=== PATIENT | male | born 1995 | race Caucasian/White ===

== ENCOUNTER 2019-12-08 14:32 | Inpatient (IN) | payer OTHER, SELFPAY ==
[2019-12-08] VITALS (11 sets, daily range): BP systolic 114–127; BP diastolic 62–75; PULSE 66–80; RESP 16–21; TEMP 36.4–36.9; O2SAT 97–100; BMI 25.0
--- NOTE | ~2019-12-08 | XR_ITS ---
EXAMINATION: XR chest 2V DATE: 12/10/2019 11:59 INDICATION: Right pneumothorax status post chest tube removal TECHNIQUE: PA and lateral views of the chest are obtained. COMPARISON: 0559 hours FINDINGS: The lungs are free of acute opacities. The right-sided chest tube has been removed. No pneu mothorax is identified. There is no pleural effusion. The cardiomediastinal silhouette is normal. Robbie gical changes are noted in the distal right clavicle. IMPRESSION: 1. Right-sided chest tube removal without pneumothorax identified. Reviewed, dictated and finalized at location A.
--- NOTE | ~2019-12-08 | XR_ITS ---
EXAMINATION: XR chest 1V portable INDICATION: Right pneumothorax TECHNIQUE: Portable AP chest at 0559 hours COMPARISON: 12/09/2019 FINDINGS: A right-sided chest tube has been partially withdrawn but remains in position. No pneumotho rax is identified. The lungs are free of acute opacities. The cardiomediastinal silhouette is normal. There is no pleural effusion. IMPRESSION: 1. Right-sided chest tube in position, no pneumothorax. Reviewed, dictated and finalized at location A.
--- NOTE | ~2019-12-08 | XR_ITS ---
XR chest-chest tube insert/pos 12/08/2019 16:22 Indication: Right pneumothorax post chest tube placement Procedure: AP portable chest Comparison: 12/08/2019 Findings: Significantly decreased size of right pneumothorax post chest tube placement. There is atel ectasis right midlung. Normal mediastinal position. Left lung clear. No pleural effusion. Heart size normal. Impression: 1: Significantly decreased size of right pneumothorax post chest tube placement. Reviewed, dictated and finalized at location A. Impression: 1: Significantly decreased size of right pneumothorax post chest tube placement .
--- NOTE | ~2019-12-08 | XR_ITS ---
EXAMINATION: XR chest 1V portable 12/08/2019 15:11 INDICATION: Right sided chest pain pressure. PROCEDURE: AP portable chest COMPARISON: No prior studies for comparison. FINDINGS: The lungs are clear. The cardiomediastinal silhouette is within normal limits. There are no pleural effusions. There is a moderate-large right pneumothorax with subtle mediastinal shift to t he left. IMPRESSION: 1: Moderate-large right pneumothorax with subtle leftward mediastinal shift. Dr. Farah discussed with Dr. Armando Dailey MD at 12/08/2019 15:14 CDT. Reviewed, dictated and finalized at location A.
--- NOTE | ~2019-12-08 | XR_ITS ---
EXAMINATION: XR chest 2V DATE: 12/09/2019 08:39 INDICATION: Pneumothorax TECHNIQUE: AP and lateral views of the chest are obtained. COMPARISON: 12/08/2019 FINDINGS: The lungs are free of acute opacities. The right-sided chest tube is positioned anteriorly. No persistent pneumothorax is identified. There is no pleural effusion. The cardiomediastinal silhou ette is normal. The visualized bones and soft tissues are unremarkable. IMPRESSION: 1. Right chest tube in position. No pneumothorax identified. Reviewed, dictated and finalized at location A.
--- NOTE | 2019-12-08 14:44 | ECG_ITS ---
Measurements Intervals [place] Rate: 68 P: -25 IN: 117 QRS: 62 QRSD: 87 T: 21 QT: 350 QTc: 373 Interpretive Statements SINUS RHYTHM WITH SHORT IN INTERVAL BORDERLINE ECG Electronically Signed On 12-08-2019 16:20:44 CDT by Steve Yang D.O.
[2019-12-08 15:16] LABS: Basophils Percent Auto 0.4 % (0.2-1.2); Eosinophils Percent Auto 0.6 % (0-4.4); Hematocrit 41.1 % (42.0-52.0); Hemoglobin 14.1 g/dL (14.0-18.0); Immature Granulocyte Absolute 0.01 K/mm3 (0.00-0.031); Immature Granulocyte Percent A 0.2 % (0-0.5); Lymphocytes Absolute Auto 1.49 K/mm3 (0.9-3.2); Lymphocytes Percent Auto 27.6 % (18.3-44.2); Mean Corpuscular HGB Conc 34.3 g/dl (32-36); Mean Corpuscular Hemoglobin 31.1 pg (26-34); Mean Corpuscular Volume 90.5 fl (80-100); Mean Platelet Volume 10.1 fl (7.4-10.4); Monocytes Absolute Auto 0.5 K/mm3 (0.1-0.6); Monocytes Percent Auto 9.1 % (2.6-8.5); Neutrophils Absolute Auto 3.4 K/mm3 (1.3-6.7); Neutrophils Percent Auto 62.1 % (45.5-73.1); Platelet Count Result 245 k/mm3 (150-375); Red Blood Count 4.54 M/mm3 (4.6-6.20); Red Cell Distribution Width 11.9 % (11.5-14.5); White Blood Count 5.4 K/mm3 (4.5-10.0)
[2019-12-08 15:26] LABS: INR 1.1; Prothrombin Time 13.5 Seconds (11.1-14.7)
--- NOTE | 2019-12-08 15:26 | PC.NURSE ---
CONSENT OBTAINED FOR CHEST TUBE AT THIS TIME.
[2019-12-08 15:27] LABS: Anion Gap 13.3 mmol/L (7-16); Blood Urea Nitrogen 18 mg/dL (9-20); Calcium 9.6 mg/dL (8.4-10.2); Carbon Dioxide 28 mmol/L (22-30); Chloride 102 mmol/L (98-107); Estimated CRCL calculation 118 ml/min; Estimated Glomerular Filt Rate > 60; Glucose 85 mg/dL (75-110); Partial Thromboplastin Time 31.2 SECONDS (22.3-36.8); Potassium 4.3 mmol/L (3.4-5.0); Sodium 139 mmol/L (137-145)
[2019-12-08 15:39] LABS: Troponin I < 0.012 ng/mL (0.000-0.034)
[2019-12-08] MEDS: SODIUM CHLORIDE 0.9% IV 1,000 ML 999 ML IV CONT (15:40)
--- NOTE | 2019-12-08 16:58 | ED.CHESTPAIN ---
HPI - Chest Pain General Chief Complaint: Chest Pain Stated Complaint: chest pressure today Time Seen by Provider: 12/08/19 14:57 Source: patient and family Mode of arrival: ambulatory Limitations: no limitations History of Present Illness HPI narrative: 24-year-old with a history of spontaneous pneumothorax in the past here with complaints of sudden onset of right-sided chest pain associated with some shortness of breath. Patient states that he was mowing his lawn this morning and while he was doing that he felt a sudden pop in his right side of his chest. He thinks he has another pneumothorax his pain is similar to his previous episodes. He denies any fever or chills no history of cough. MD complaint: chest pain Onset (ago): hour(s) (2) Timing of current episode: constant Pain location: right chest Pain radiation: none Quality: aching Relieving factors: nothing Exacerbating factors: nothing Associated symptoms: dyspnea Risk Factors Coronary artery disease risk factors: none Thoracic aortic dissection risk factors: none Related Data Home Medications Medication Instructions Recorded Confirmed No Home Medications 12/08/19 12/08/19 Allergies Allergy/AdvReac Type Severity Reaction Status Date / Time No Known Allergies Allergy Verified 12/08/19 14:56 Review of Systems Review of Systems: All systems reviewed & are unremarkable except as noted in HPI and below Constitutional: Constitutional: Reports as per HPI Eyes: Eyes: Reports no additional eye complaints ENT: Reports system reviewed and no additional complaints, except as documented Cardiovascular: Cardiovascular: Reports as per HPI Respiratory: Respiratory: Reports as per HPI Gastrointestinal: Gastrointestinal: Reports no additional gastrointestinal complaints Musculoskeletal: Musculoskeletal: Reports no additional musculoskeletal complaints Neurologic: Reports system reviewed and no additional complaints, except as documented PMFSH Social History Social History (Updated 12/08/19 @ 17:02 by Armando Dailey MD) Social History: no Substance use: never Living arrangements: with family Additional occupation/education comments: works as maintence Gender identity (if verbalized by the patient): Male Exam Narrative: Exam Narrative: GENERAL: Well-appearing, well-nourished, and in no acute distress., mildly anxious HEAD: Normocephalic, atraumatic. EYES: PERRLA and EOMI. ENT: Nares clear, no rhinorrhea or epistaxis. Mucous membranes moist. NECK: Supple. CHEST: Decreased air entry on the right. HEART: Regular rate and rhythm. No murmur heard. Normal peripheral pulses. ABDOMEN: Soft, nontender, nondistended, normal active bowel sounds. EXTREMITIES: Normal range of motion. No edema. SKIN: Warm, dry, no rash. NEURO: No focal deficits. Alert and oriented x3. PSYCH: Normal mood and affect. Course Course Emergency Course: Inform patient about his lab work, chest x-ray findings. Agreed for chest tube placement. Details look in the procedure note. Vital Signs Vital signs: Vital Signs Temperature 36.9 C 12/08/19 14:54 Pulse Rate 69 12/08/19 14:54 Respiratory Rate 18 12/08/19 14:54 Blood Pressure 126/67 12/08/19 14:54 Pulse Oximetry 98 12/08/19 14:54 Temperature 36.9 C 12/08/19 16:11 Pulse Rate 75 12/08/19 15:59 Respiratory Rate 21 H 12/08/19 15:59 Blood Pressure 114/72 12/08/19 15:59 Pulse Oximetry 98 12/08/19 15:59 Procedures Chest Tube Chest Tube 1: Chest Tube Date: 12/08/19 Chest Tube Time: 16:00 Chest Tube Location: right Tube Type: trochar Size of Tube (cm): 28 Chest Tube Prep: Yes betadine prep and sterile drapes applied Anesthetic: lidocaine 1% and with epi Amount of anesthesia used (mL): 20 Incision Made With: #11 blade Procedure: incision/open Post Procedure: sutured to skin, sterile dressing applied and connected
--- NOTE | 2019-12-08 18:13 | PC.NURSE ---
This patient, Fer Albrecht, was admitted to 3 [facility] Surg Room 320-01. Patient/family oriented to hospital policies and general routines including ID bracelet, bed and alarms, visiting hours, pain management, procedures, bathroom and other care routines, personal items, smoking policy, room service/diet, and visiting hours. Valuables list has been completed. Information on how to activate the Rapid Response Team has been discussed. Patient/Family are encouraged to report perceived risks to care and to ask questions if they do not understand what they are told or what they should do.
[2019-12-08 18:17] LABS: Troponin I < 0.012 ng/mL (0.000-0.034)
--- NOTE | 2019-12-08 19:03 | PC.NURSE ---
PT IS A WEEK END DRINKER [employer]
[2019-12-08] MEDS: SODIUM CHLORIDE 0.9% IV 1,000 ML 50 ML IV CONT (21:10)
[2019-12-08 21:45] LABS: Troponin I < 0.012 ng/mL (0.000-0.034)
[2019-12-09 02:00] VITALS: BP 122/62; PULSE 63; RESP 20; TEMP 36.6; O2SAT 98
[2019-12-09 06:00] VITALS: BP 119/58; PULSE 74; RESP 20; TEMP 36.4; O2SAT 97
--- NOTE | 2019-12-09 09:32 | PM.IMHP ---
H&P: HPI History of Present Illness Date/Time: 12/09/19 08:32 Chief complaint: Pneumothorax right Narrative: Fer Albrecht is a 24 year old male with a history of a spontaneous pneumothorax in March of 2019 that was treated at [facility], who presented to the emergency department with complaints of right-sided chest pain. 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 Denies any shortness of breath or difficulty breathing. He reports the pain was similar to the pain he felt with his previous pneumothorax, therefore he presented to the emergency department for further evaluation. Chest x-ray in the ER showed a moderate-large sized right pneumothorax with subtle leftward mediastinal shift. Labs were unremarkable. He had a series of three negative troponins and EKG showed normal sinus rhythm. A right-sided chest tube was placed by the ER physician and the repeat chest x-ray confirmed placement with improvement of the pneumothorax. Our service was contacted for the right pneumothorax and he was admitted to the hospital. The patient is now being seen on the medical floor this morning. Only complaint is right-sided chest pain where the chest tube is located. No shortness or breath, difficulty breathing, or cough. He reports he was out drinking the night before, but denies any trauma to the chest or falling. Lifetime non-smoker. Review of Systems Constitutional: Constitutional: Reports as per HPI, Denies chills, Denies excessive sweating, Denies fatigue, Denies fever(s), Denies headache(s) and Denies weakness Eyes: Eyes: Denies change in vision and Denies loss of vision ENT: Reports Normal hearing present, Denies dizziness and Denies headache(s) Cardiovascular: Cardiovascular: Reports as per HPI, Reports no additional cardiovascular complaints, Reports chest pain (right-sided), Denies syncope, Denies leg edema, Denies lightheadedness, Denies radiating jaw, neck or arm pain, Denies dyspnea and Denies dyspnea on exertion Respiratory: Respiratory: Reports no additional respiratory complaints, Denies cough, Reports pain on inspiration (with chest tube in place), Denies dyspnea and Denies wheezing Gastrointestinal: Gastrointestinal: Reports as per HPI and Reports abdominal pain Musculoskeletal: Musculoskeletal: Denies deformity, Denies joint swelling, Denies radiating pain into limb and Denies tingling Integumentary/Breasts: Skin/Breast: Denies pruritus, Denies wounds and Denies jaundice Neurologic: Reports Normal hearing present, Denies confusion, Denies dizziness, Denies syncope, Denies headache(s), Denies loss of vision, Denies tingling, Denies tremor(s) and Denies weakness Psychiatric: Psychiatric: Denies anxiety, Denies confusion and Denies depression Endocrine: Endocrine: Denies cold intolerance, Denies excessive sweating, Denies fatigue and Denies heat intolerance PMF Past Medical History Medical History History of pneumothorax Spontaneous pneumothorax in March 2019 treated with a chest tube and Heimlich valve. Surgical History Surgical History History of shoulder surgery 2012 Family History Family History Father Acute myocardial infarction Grandparent Malignant neoplasm of prostate Social History Social History Smoking status: Never smoker Alcohol intake: current Substance use: never Living arrangements: with family Additional living arrangements comments: Lives with his and 6 week old son. Occupation/Education: occupation Additional occupation/education comments: works as maintence Gender identity (if verbalized by the patient): Male Spiritual care concerns: No Meds Ben
[2019-12-09 10:19] VITALS: O2SAT 96
[2019-12-09 14:00] VITALS: BP 131/78; PULSE 63; RESP 18; TEMP 36.8; O2SAT 100
--- NOTE | 2019-12-09 18:56 | PC.NURSE ---
As ordered patient's chest tube was changed from suction to Water seal approx 1300. Patient tolerated well. Resting in bed.
[2019-12-09 20:00] VITALS: PULSE 63; RESP 18; O2SAT 100
[2019-12-09 22:00] VITALS: BP 127/59; PULSE 59; RESP 18; TEMP 37.2; O2SAT 98
[2019-12-10 06:00] VITALS: BP 134/68; PULSE 61; RESP 18; TEMP 37.2; O2SAT 98
--- NOTE | 2019-12-10 09:14 | P.PNGS_ITS ---
Progress Note: A&P Assessment and Plan (1) Pneumothorax on right: Code(s): J93.9 - Pneumothorax, unspecified Status: Acute Assessment and Plan: * Chest x-ray this morning on water seal showed no pneumothorax, chest tube in position. * Will gather supplies and remove the chest tube at the bedside this morning. Repeat chest x-ray 3 hours after removal. If the repeat chest x-ray looks good, then the patient could be discharged later today. * I did discuss with the patient again today following up with a thoracic surgeon after discharge. Additional Plan Discussed the plan of care with Dr. Wallace today. Subjective Subjective Date/Time Seen: 12/10/19 09:14 Patient reports: no new complaints and still having pain (at chest tube site) Interval history: Patient reports no new complaints today. Still having pain that is being controlled with PRN medication at the site of the chest tube. No shortness of breath or difficulty breathing. Chest tube has been on water seal overnight. No acute events. Review of Systems Review of Systems: All systems reviewed & are unremarkable except as noted in HPI and below Exam Const: General: comfortable, no acute distress, alert and awake Orientation/consciousness: patient oriented x3 Chest: Other: Right lateral chest tube with dressing clean, dry, and intact. No air leak on water seal. No crepitus. Resp: Effort & Inspection: normal respiratory effort, able to speak in complete sentences and no respiratory distress Auscultation: clear to auscultation bilaterally Cardio: Rate: regular rate Rhythm: regular rhythm Neuro: General: moves all extremities and no focal motor deficits Extrem: General: normal to inspection and no clubbing, cyanosis or edema Psych: Mental Status: mental status grossly normal Affect: normal affect Insight: Good insight present (Psych) Judgement: Good judgement present (Psych) Objective Data Vital Signs Vital Signs: Vital Signs - 24 hr 12/09/19 10:19 12/09/19 14:00 12/09/19 20:00 Temperature 98.2 F Pulse Rate 63 63 Respiratory Rate 18 18 Blood Pressure 131/78 Pulse Oximetry 96 100 100 12/09/19 22:00 12/10/19 06:00 Temperature 98.9 F 99.0 F Pulse Rate 59 L 61 Respiratory Rate 18 18 Blood Pressure 127/59 L 134/68 Pulse Oximetry 98 98 Intake/Output Intake/Output: Intake & Output 12/07/19 12/08/19 12/09/19 12/10/19 23:59 23:59 23:59 23:59 Intake Total 1000 1785 300 Output Total 1999 750 Balance 1000 -215 -450 Meds/Results Medications: Active Medications Generic Name Dose Route Start Last Admin Trade Name Freq PRN Reason Stop Dose Admin Hydrocodone Bitart/Acetaminophen 1 tab 12/08/19 17:07 12/10/19 08:18 [place] 5-325 Mg PO 1 tab Q4H PRN Administration Pain Rated 4-6 Fentanyl Citrate 50 mcg 12/08/19 17:07 12/09/19 21:00 Sublimaze IV PUSH 50 mcg Q2H PRN Administration Pain Rated 7-10 Radiology Results: ITS Impressions Chest X-Ray 12/10/19 06:45 IMPRESSION: 1. Right-sided chest tube in position, no pneumothorax. Quality VTE Prophylaxis VTE prophylaxis: mechanical
[2019-12-10 13:33] VITALS: BP 124/63; PULSE 56; RESP 18; TEMP 36.9; O2SAT 100
--- NOTE | 2019-12-10 14:22 | PM.DS ---
DS: Admitting Diagnosis Admitting Diagnosis Admitting Diagnosis: Recurrent spontaneous right pneumothorax DS: Discharge Diagnosis Discharge Diagnosis (1) Pneumothorax on right: Code(s): J93.9 - Pneumothorax, unspecified Status: Acute Assessment and Plan: Recurrent spontaneous right pneumothorax. DS: Summary Hospital Course Reason for hospitalization: Fer is a 24-year-old male who presented to the ED with complaints of right-sided chest pain. He was found to have a moderate to large-sized right pneumothorax on chest x-ray and had a chest tube placed in the emergency department. This was the patient's second spontaneous pneumothorax in the past year. He denied a history of trauma, smoking, inhaled chemical exposure, or hx of lung disease. Our service then was contacted and admitted to the patient to the hospital for the right pneumothorax and management of the chest tube. Hospital Course: The patient was admitted with the right-sided chest tube initially to -20 cm suction overnight. Incentive spirometry was ordered and deep breathing/coughing was encouraged. The first day after chest tube placement, his chest x-ray in the morning showed no pneumothorax and the patient was doing well. He had no evidence of an air leak on suction or on water seal. His chest tube was then put to water seal for that day and a repeat chest x-ray was put in for this morning on water seal. Chest x-ray this morning showed no pneumothorax. The patient was again doing well. I returned to the bedside around 9:30 am and removed the chest tube at the bedside and applied a sterile occlusive dressing. He had no immediate complications and tolerated this well. A repeat chest x-ray was done this afternoon and there was no evidence of a right pneumothorax. I went back to examine the patient and he remained stable. Denies any shortness of breath or difficulty breathing. Reports he is a little sore at the incision, but his chest pain from the chest tube has completely resolved. No other complaints at this time. I discussed the case with Dr. Wallace and he is stable for discharge. I discussed discharge instructions with the patient and answered all questions. We will plan to see him in follow-up in the office in 1 week and get a repeat chest x-ray. Then, we will remove the suture in the office and set him up for referral to a thoracic surgeon at that time since this was his second pneumothorax in the past year. Status at Discharge Functional status at discharge: independent ambulation Overall status at discharge: patient is progressing back to baseline Time Spent with Patient Time attestation: Total time spent providing and/or coordinating discharge services: Time spent: Less than 30 minutes Exam Const: General: comfortable, no acute distress, alert and awake Orientation/consciousness: patient oriented x3 Chest: Other: Right lateral chest dressing clean, dry, and intact. Resp: Effort & Inspection: normal respiratory effort, able to speak in complete sentences and no respiratory distress Auscultation: clear to auscultation bilaterally Cardio: Rate: regular rate Rhythm: regular rhythm Neuro: General: moves all extremities and no focal motor deficits Discharge Plan Discharge Attending physician on discharge: Agus Wallace Discharging Clinician: Maryann Rae Anticipated Discharge Date/Time: 12/10/19 14:22 Patient Disposition: Home, Self-Care Activity: other - see discharge instructions Diet: regular Wound Care Instructions: other - see discharge instructions Discharge Instructions: Keep current dressing on the chest in place for 2 days. May then remove the dressing and start showering over the wound daily. Do not submerge in water. After initial dressing is removed, start applying just a clean gauze dressing with tape over the wound. There is still a suture in place in your chest, this will be removed at your follow-up.
== END 2019-12-10 15:02 | disposition home or self-care (01) | DRG 201 ==
LOC: ANHED 17:28 → ANH3MEDSUR 17:47
PROVIDERS: Admitting Provider Surgery; Emergency Provider Family Medicine; PCP Family Medicine; Visit Provider Surgery
DX: J93.83 Other pneumothorax (principal)
CPT/HCPCS: 32551; 36415; 71045; 71046; 80048; 84484; 85025; 85610; 85730; 93005; 96361; 96374; 96375; 96376; 99285; A9270; J1170; J2060; J3010; J7030

== ENCOUNTER 2019-12-19 09:34 | Outpatient (CLI) | payer OTHER, SELFPAY ==
--- NOTE | ~2019-12-19 | XR_ITS ---
XR chest 2V DATE: 12/19/2019 10:02 INDICATION: Pneumothorax TECHNIQUE: 2 views COMPARISON: 12/10/2019 PA and lateral chest FINDINGS: Normal heart size. No hilar or mediastinal enlargement. No pulmonary infiltrate or consolid ation, pleural effusion or pulmonary vascular congestion or pneumothorax. Postoperative change of the lateral aspect right clavicle. Mild thoracic scoliosis. IMPRESSION: No active cardiopulmonary disease Reviewed, dictated and finalized at location A.
== END 2019-12-19 09:35 | disposition home or self-care (01) ==
PROVIDERS: PCP Family Medicine; Visit Provider Nurse Practitioner Family
DX: J93.9 Pneumothorax, unspecified (principal)
CPT/HCPCS: 71046

== ENCOUNTER 2023-02-20 09:45 | Emergency (ER) | payer OTHER, SELFPAY ==
--- NOTE | ~2023-02-20 | XR_ITS ---
EXAMINATION: XR wrist LT min 3V DATE: 02/20/2023 10:32 INDICATION: Hyperextension injury to the left wrist post fall TECHNIQUE: Posteroanterior, ulnar deviation, oblique, and lateral views of the left wrist were obtain ed. COMPARISON: none FINDINGS: Subtle linear lucency projecting over the metaphyseal region of the distal left radius on the oblique projection consistent with nondisplaced fracture. No definitive intra-articular extension identified although given the orientation of the fracture plane this cannot be excluded. No other fractures odin ntified. Alignment remains essentially anatomic. Joint spaces are normal. Soft tissues are unremarkab le. IMPRESSION: 1. Nondisplaced distal left radial fracture. Reviewed, dictated and finalized at location A.
--- NOTE | 2023-02-20 09:47 | ED.UPPEXIN ---
HPI - Extremity Injury (Upper) General Chief Complaint: Extremity Injury, Upper Stated Complaint: Left Wrist Injury Time Seen by Provider: 02/20/23 09:47 Source: patient Mode of arrival: ambulatory Limitations: no limitations History of Present Illness HPI narrative: Fer is a 28-year-old male patient presenting to the clinic today with complaints of left wrist pain/injury. He reports he fell facing forward on Monday and extended his left arm out to catch him and injured the left wrist. This most the pain is on the radial side of the left wrist. Has good circulation,sensation, with limited motion Related Data Allergies Allergy/AdvReac Type Severity Reaction Status Date / Time No Known Allergies Allergy Verified 12/20/19 10:03 Review of Systems Review of Systems: Pertinent positives per HPI. Patient denies any fever, chills, rash, headache, visual changes, dizziness, cough, runny nose, sore throat, shortness of breath, chest pain, palpitations, nausea, vomiting, diarrhea, constipation, abdominal pain, or any urinary issues. [facility] Past Medical History Medical History (Updated 02/20/23 @ 10:37 by Daniel Hoffman APRN) History of pneumothorax Spontaneous pneumothorax in March 2019 treated with a chest tube and Heimlich valve. Surgical History Surgical History History of shoulder surgery 2012 Family History Family History Father Acute myocardial infarction Grandparent Malignant neoplasm of prostate Social History Social History Smoking status: Never smoker Alcohol intake: current Substance use: never Living arrangements: with family Additional living arrangements comments: Lives with his and 6 week old son. Occupation/Education: occupation Additional occupation/education comments: works as maintence Gender identity (if verbalized by the patient): Male Spiritual care concerns: No Comments At the time of my signature, I reviewed and agree with the nursing past medical, surgical, social, and family history. There is no relevant family history pertinent to the patient complaint. Exam Narrative: General: Well-developed, well nourished, in no apparent distress Head: Normocephalic, atraumatic. Cardio: Regular rate and rhythm, s1 and s2 normal, no murmur appreciated. Resp: Clear to auscultation bilaterally, no rhonchi, rales, wheezing or rubs. Musculoskeletal: No deformity, swelling noted over the radial aspect of the left wrist, tenderness to palpation over the left radial wrist, limited range of motion with flexion and extension of the wrist, pain with ulnar and radial deviation, full flexion and extension of the left thumb against resistance strong, peripheral pulse strong, no edema, no cyanosis, normal gait and station Course Course Emergency Course: Portions of this record may have been created with voice recognition software. Level of Care: Express Care Visit Vital Signs Vital signs: Vital Signs Temperature 36.5 C 02/20/23 09:52 Pulse Rate 72 02/20/23 09:52 Respiratory Rate 20 02/20/23 09:52 Blood Pressure 124/64 02/20/23 09:52 Pulse Oximetry 98 02/20/23 09:52 Oxygen Delivery Room Air 02/20/23 09:52 Temperature 36.5 C 02/20/23 09:52 Pulse Rate 72 02/20/23 09:52 Respiratory Rate 20 02/20/23 09:52 Blood Pressure 124/64 02/20/23 09:52 Pulse Oximetry 98 02/20/23 09:52 Oxygen Delivery Room Air 02/20/23 09:52 Vital signs reviewed MDM - Extremity Injury (Upper) MDM Narrative Medical decision making narrative: At the time of visit patient is resting comfortably on the exam table. X-rays of the left wrist was performed and shows a distal radial fracture no sign of ulnar styloid fracture or ulnar fracture. Awaiting radiologist's report as we ar
[2023-02-20 09:52] VITALS: BP 124/64; PULSE 72; RESP 20; TEMP 36.5; O2SAT 98
== END 2023-02-20 11:03 | disposition home or self-care (01) ==
PROVIDERS: Emergency Provider Nurse Practitioner Family
DX: S52.502A Unspecified fracture of the lower end of left radius, initial encounter for closed fracture (principal); W18.30XA Fall on same level, unspecified, initial encounter
CPT/HCPCS: 29125; 73110; 99214; A4565; G0463